=== PATIENT | female | born 1970 | race Caucasian/White ===

== ENCOUNTER 2022-10-30 18:27 | Emergency (ER) | payer SELFPAY ==
[2022-10-30 18:36] VITALS: BP 140/79; PULSE 90; RESP 16; TEMP 36.3; O2SAT 98
[2022-10-30 18:38] VITALS: BP 140/79; PULSE 90; RESP 16; TEMP 36.3; O2SAT 98
--- NOTE | 2022-10-30 18:39 | ED.URI ---
HPI - URI/Sore Throat General Chief Complaint: Upper Respiratory Infection Stated Complaint: uri Time Seen by Provider: 10/30/22 18:47 Source: patient and RN notes reviewed Mode of arrival: ambulatory Limitations: no limitations History of Present Illness HPI Narrative: 52-year-old female presented for complaint of sinus congestion, cough, body aches and fatigue. Endorses onset was about 3 days ago. She denies sick contacts. She has been taking DayQuil, NyQuil and Tylenol for symptoms. She denies shortness of breath, wheezing, nausea vomiting, diarrhea, fevers or chills. MD elicited complaint: cough Related Data Allergies Allergy/AdvReac Type Severity Reaction Status Date / Time No Known Drug Allergies Allergy Unknown Unknown Verified 10/30/22 18:37 Review of Systems Review of Systems: Per [facility] Past Medical History Medical History (Updated 10/30/22 @ 19:01 by Marge Olivares, CERTIFIED ADAPTED PHYSICAL EDUCATOR) No pertinent past medical history Exam Narrative: GENERAL: mildly Ill-appearing, nontoxic no acute distress. HEAD: Normocephalic EYES: PERRLA, conjunctivae clear ENT: Mucous membranes moist. TMs pearly balbuena with dull light reflex bilaterally; no tragal tenderness. Oropharynx mildly erythematous without lesions or exudate, no drooling, no hoarseness, no trismus, uvula midline. CHEST: Clear to auscultation, breath sounds equal. Talkative. No respiratory distress, speaks in full sentences. HEART: Regular rate and rhythm. No murmur heard. SKIN: Warm, dry, no rash. NEURO: Alert and oriented x3. Course Course Emergency Course: Patient is aware of diagnosis, understands and agrees to treatment plan. Anticipatory guidance given. Patient agrees to follow-up as directed and is aware of reasons to seek care at the emergency department. Portions of this record may have been created with voice recognition software Level of Care: Express Care Visit Vital Signs Vital signs: Vital Signs Temperature 97.3 F L 10/30/22 18:36 Pulse Rate 90 10/30/22 18:36 Respiratory Rate 16 10/30/22 18:36 Blood Pressure 140/79 10/30/22 18:36 Pulse Oximetry 98 10/30/22 18:36 Oxygen Delivery Room Air 10/30/22 18:36 Temperature 97.3 F L 10/30/22 18:38 Pulse Rate 90 10/30/22 18:38 Respiratory Rate 16 10/30/22 18:38 Blood Pressure 140/79 10/30/22 18:38 Pulse Oximetry 98 10/30/22 18:38 Oxygen Delivery Room Air 10/30/22 18:38 reviewed MDM - URI/Sore Throat MDM Narrative Medical decision making narrative: patient declines viral testing. Advised supportive measures and signs/symptoms to go to the ER. Pt is appropriate for outpt treatment and f/u. Differential Diagnosis Differential diagnosis: Likely upper respiratory infection, sinusitis and viral infection Discharge Plan Discharge Clinical Impression: Upper respiratory infection Patient Disposition: Home, Self-Care Condition: Stable Instructions: Antibiotic Form, Upper Respiratory Infection (ED) Additional Instructions: Recommend Flonase spray and Zyrtec (or Claritin/Hermelinda) over the counter Cough syrup may cause drowsiness; avoid driving or take it at night time. Tylenol 1000mg every 8 hours as needed for pain Symptomatic treatment includes: rest, fluids, and increase humidity of the air at home. Follow up with your primary care provider in 1 week. Go to the ER for worsening symptoms or concerns. Prescriptions: New benzonatate 200 mg capsule 200 mg PO TID PRN (Reason: cough) Qty: 20 0RF Follow-up/Referrals: UNKNOWN,DOCTOR [Primary Care Provider] - Stand Alone Forms: Work/School Release IP Time of Disposition: 18:58
== END 2022-10-30 19:03 | disposition home or self-care (01) ==
PROVIDERS: Emergency Provider Nurse Practitioner Family
DX: J06.9 Acute upper respiratory infection, unspecified (principal)
CPT/HCPCS: 99213; G0463

== ENCOUNTER 2023-08-31 14:26 | Emergency (ER) | payer SELFPAY ==
--- NOTE | ~2023-08-31 | CT_ITS ---
EXAMINATION: CT soft tissue neck wo con DATE: 08/31/2023 15:22 INDICATION: TECHNIQUE: Computed tomography (CT) of the neck was performed with 75 mL Omnipaque-350 intravenous co ntrast. The dose-length product was 468.72 mGy-cm. COMPARISON: None FINDINGS: No radiopaque foreign body. Subcentimeter right thyroid nodule which requires no additional evaluati on at this time. The submandibular and parotid glands are symmetric. There is no cervical lymphad enopathy. There are no masses identified. Mild ascending aortic ectasia, mildly patulous esophagu s, otherwise the superior mediastinum is unremarkable. The airway is unremarkable. Parapharyngeal and pre-glottic fat planes are preserved. Mild arch calcification and bilateral carotid bifurcatio n calcified plaque. The orbits are unremarkable. Visualized sinuses and mastoid air cells are well aerated. Clear lungs. Minimal cervical spondylosis. IMPRESSION: Unremarkable CT neck soft tissue findings. No radiopaque foreign body. Reviewed, dictated and finalized at location [facility]
[2023-08-31 14:27] VITALS: BP 161/83; PULSE 96; RESP 12; TEMP 36.6; O2SAT 99
[2023-08-31] MEDS: LIDOCAINE HCL 2% VISC SOLN 15 ML UDC PO (15:55)
--- NOTE | 2023-08-31 17:16 | ED.SKABFB ---
HPI - Skin/Abscess/Foreign Bdy General Chief complaint: Skin/Abscess/Foreign Body Stated complaint: bone stuck in throat Time Seen by Provider: 08/31/23 16:03 History of Present Illness HPI narrative: This is a 53-year-old female, with no significant past medical history, presenting to the emergency department complaining of foreign body sensation in the throat. The patient states she was eating chicken, when she felt something become lodged in her upper throat. She denies difficulty breathing or difficulty swallowing. She has no other complaints at this time. Related Data Allergies Allergy/AdvReac Type Severity Reaction Status Date / Time No Known Drug Allergies Allergy Unknown Unknown Verified 10/30/22 18:37 Review of Systems Review of Systems: CONSTITUTIONAL: Denies fever, chills, or sweats. ENT: Foreign body sensation in throat Denies rhinorrhea, congestion, sore throat, or otalgia. CARDIOVASCULAR: Denies chest pain, palpitations, or edema. RESPIRATORY: Denies cough or dyspnea. GASTROINTESTINAL: Denies abdominal pain, nausea, vomiting, or diarrhea. NEUROLOGIC: Denies headache, numbness, dizziness, or weakness. PSYCHIATRIC: Denies anxiety or depression. [facility] [place] Past Medical History Medical History (Updated 09/01/23 @ 00:01 by Samy Aiken) No pertinent past medical history Surgical History Surgical History (Updated 08/31/23 @ 17:26 by Kedar Amezquita MD) No significant past surgical history Exam Narrative: GENERAL: Well-appearing, well-nourished, and in no acute distress. HEAD: Normocephalic, atraumatic. EYES: PERRLA and EOMI. ENT: No visible foreign body or swelling in the pharynx. Mucous membranes moist. Oropharynx without tonsillar hypertrophy exudate or other lesions. NECK: Supple. No stridor CHEST: Clear to auscultation. No respiratory distress. No wheezes rales or rhonchi HEART: Regular rate and rhythm. No murmur heard. Normal peripheral pulses. NEURO: No focal deficits. Alert and oriented x3. PSYCH: Normal mood and affect. Course Course Emergency Course: 17:20 - CT soft tissue neck not concerning for radiopaque foreign body. My exam is also not concerning for foreign body. I discussed these findings with the patient. Will discharge with viscous lidocaine for pain control. Discussed return and emergency precautions including signs/symptoms of airway compromise. The patient voiced understanding and is comfortable with the plan. All questions answered to her satisfaction. Vital Signs Vital signs: Vital Signs Temperature 97.9 F 08/31/23 14:27 Pulse Rate 96 08/31/23 14:27 Respiratory Rate 12 08/31/23 14:27 Blood Pressure 161/83 H 08/31/23 14:27 Pulse Oximetry 99 08/31/23 14:27 Oxygen Delivery Room Air 08/31/23 14:27 Temperature 97.9 F 08/31/23 14:27 Pulse Rate 96 08/31/23 14:27 Respiratory Rate 12 08/31/23 14:27 Blood Pressure 161/83 H 08/31/23 14:27 Pulse Oximetry 99 08/31/23 14:27 Oxygen Delivery Room Air 08/31/23 14:27 MDM - Skin/Abscess/Foreign Bdy MDM Narrative Medical decision making narrative: plan: Imaging, pain control, reassess Differential Diagnosis Differential diagnosis: Likely other ( retained foreign body, soft tissue swelling, other) Discharge Plan Discharge Clinical Impression: Globus sensation Patient Disposition: Home, Self-Care Condition: Stable Instructions: Antibiotic Form, Foreign Body in the Pharynx (ED) Additional Instructions: You were seen in the emergency department. CT scan was not concerning for retained foreign object. I Recommend viscous lidocaine for pain. I recommend following up with your primary care doctor. If you develop difficulty breathing, difficulty swallowing, or if you have other emergent concerns for life, limb, or eyesight, return to the emergency department. Patient Language: Niuean Prescriptions: New lidocaine HCl [Lidocaine Viscous] 2 % solution
== END 2023-08-31 18:04 | disposition home or self-care (01) ==
PROVIDERS: Emergency Provider Preventive Medicine Aerospace Medicine
DX: F45.8 Other somatoform disorders (principal)
CPT/HCPCS: 70490; 99284